=== PATIENT | male | born 1990 ===

== ENCOUNTER 2020-07-10 | Inpatient (IN) | payer BC, SELFPAY ==
[2020-07-10] VITALS (13 sets, daily range): BP systolic 93–119; BP diastolic 58–68; PULSE 74–101; RESP 14–20; TEMP 36.6–37.2; O2SAT 92–99; BMI 21.8
--- NOTE | 2020-07-10 | EEG_ITS ---
The waking background activity consists of a fairly well-defined low voltage posterior 10 hertz alpha frequency intermixed anteriorly with low-voltage fast frequencies. On a few occasion, slight sharp configuration waveform is seen from the left posterior temporal region. Drowsiness is characterized with diffuse theta slowing. During sleep, symmetrical frontal central sleep spindles develop over both hemispheres. Photic stimulation is without activation. Hyperventilation was omitted. IMPRESSION: This awake and sleep EEG is considered within normal limits. Some nonspecific sharp configuration waveforms are seen rarely from the left posterior temporal region. Clinical correlation is suggested. If a seizure disorder is strongly suspected, a 24-hour ambulatory EEG would be helpful. MD ALAN Holley/PATY / [id number]
--- NOTE | 2020-07-10 | XR_ITS ---
EXAMINATION: XR HUMERUS, LEFT CLINICAL INFORMATION: Left shoulder pain. COMPARISON: None TECHNIQUE: AP and lateral views of the left humerus. FINDINGS: There is no visible acute fracture or bony abnormality. The soft tissues are normal. XR/XR humerus LT IMPRESSION: Unremarkable left humerus.
--- NOTE | 2020-07-10 00:42 | ED.SYNCOPE ---
HPI - Syncope General Chief Complaint: Dizziness Stated Complaint: syncope Time Seen by Provider: 07/10/20 00:35 Source: patient and family Mode of arrival: ambulatory Limitations: no limitations History of Present Illness HPI narrative: patient with no significant past medical history came back from work was talking to his sister and family all of a sudden patient was feeling weak and next thing he fell down hitting his face/ head to the ground, patient was nauseated , confused and vomited 3 times after the episode. complaining of pain in the left jaw area. No seizure activity was noticed but patient was confused after the episode and feels tired now no history of tramadol use or alcohol use strong family history of seizures in the father side MD complaint: loss of consciousness Description of event: post-event confusion Related Data Home Medications Medication Instructions Recorded Confirmed No Known Home Meds 07/10/20 07/10/20 Allergies Allergy/AdvReac Type Severity Reaction Status Date / Time No Known Allergies Allergy Verified 07/10/20 00:30 Review of Systems Review of Systems: REVIEW OF SYSTEMS: Pertinent positives and negatives are stated above in the history. GEN: no fevers, chills, fatigue HEENT: no nasal congestion, sore throat, ear pain. left jaw pain++ NEURO: no headache, dizziness, focal weakness PULM: no cough, shortness of breath CV: no chest pain, palpitations, LE edema ABD: no abdominal pain, nausea, vomiting, diarrhea : no dysuria, urgency, frequency SKIN: no rash ROS otherwise negative x 10 PMFSH Past Medical History Medical History No known health problems Surgical History No history of previous surgery Social History Social History Smoking Status: Never smoker Use of substances other than those prescribed or required for medical reasons: No Advance Directives: No Advance Directives Information Provided: No Physical Exam Vital Signs: Vital Signs: Vital Signs Temp Pulse Resp BP Pulse Ox 07/10/20 00:26 98.9 F 84 15 93/59 L 94 07/10/20 00:09 98.4 F 84 15 92 Body Mass Index 21.8 Appearance: Alert. Oriented X3. No acute distress. sleepy Eyes: Pupils equal, round and reactive to light. ENT: Pharynx normal. ecchymosis under left eye with swelling of the left maxillary area, tender Neck: Normal inspection. Neck supple. CVS: Normal heart rate and rhythm. Pulses normal. Respiratory: No respiratory distress. Breath sounds normal. Abdomen: Soft and nontender. Skin: Skin warm and dry. Normal skin color. Normal skin turgor. Extremities: No lower extremity edema. Good range of movement Neuro: Oriented X 3. No motor deficit. No sensory deficit. Course Course Course Narrative: patient's symptoms likely complex seizure leading to fall and injury to the face will get a CT scan of the head neck and facial bones and do the basic labs. patient has a strong family history of seizures in the father side but patient never had seizures in the past. Patient signed out to Dr. Steele pending CT scan and labs MDM - Syncope Lab Data Result diagrams: 07/10/20 01:02 07/10/20 01:02 Discharge Plan Discharge Prescriptions: No Action No Known Home Meds RF: 0
--- NOTE | 2020-07-10 00:43 | CT_ITS ---
EXAMINATION: NONCONTRAST HEAD CT NONCONTRAST MAXILLOFACIAL CT NONCONTRAST CERVICAL SPINE CT INDICATION INFORMATION: Blunt trauma. Fall. COMPARISON: None TECHNIQUE: Separate noncontrast CT examinations of the head, maxillofacial bones, and cervical spine were performed. Coronal and sagittal images were created for each examination at the technologist workstation. This CT examination was performed using dose optimization techniques as appropriate, variously including the following: *Automated exposure control *Adjustment of mA and/or kV according to patient size (this includes techniques or standardized protocols for targeted exams where dose is matched to indication/reason for exam; i.e. extremities or head) *Use of iterative reconstruction technique DLP: 1419 mGy-cm FINDINGS: Head: There is no evidence of acute intracranial hemorrhage or territorial infarction. No abnormal mass effect or midline shift is seen. Castillo to white matter differentiation is well preserved. No extra-axial fluid collections are identified. No hydrocephalus. No significant volume loss. There is no abnormal attenuation within the brain parenchyma. No acute soft tissue abnormality. No calvarial fracture. The mastoid air cells are well aerated. Maxillofacial: Mild left premaxillary soft tissue swelling. Multiple maxillofacial fractures. Comminuted fracture of the anterior wall of the left maxillary sinus. Comminuted fracture of the posterolateral wall. Diastases at the left zygomaticosphenoid suture. Zygomatic arch is intact. Fracture of the orbital floor on the left. No evidence of extraocular muscle entrapment. There is near complete opacification of the left maxillary sinus. Internal high attenuation is consistent with blood products. The left infundibulum is opacified. The middle meati are clear. Rightward deviation of the nasal septum. The mandibular heads are well-seated in the condylar fossa. The orbits demonstrate a normal appearance bilaterally. The globes are intact, and there are no suspicious findings to suggest retrobulbar hemorrhage. Cervical spine: There is anatomic alignment of the vertebral bodies and posterior elements. The atlantoaxial and atlantooccipital articulations are intact. Vertebral body heights and intervertebral disc spaces are maintained. No evidence of acute fracture. No prevertebral soft tissue swelling. Visualized portions of the lung apices are clear. Minimal paraseptal emphysema at the lung apices. The thyroid gland is unremarkable. CT/CT cervical spine wo con IMPRESSION: 1. No acute intracranial finding. 2. Multiple maxillofacial fractures involving the left maxillary sinus. Left orbital floor fracture. 3. No acute fracture or malalignment of the cervical spine.
--- NOTE | 2020-07-10 00:51 | ECG_ITS ---
Test Reason : DIZZINESS Blood Pressure : / mmHG Vent. Rate : 081 BPM Atrial Rate : 081 BPM P-R Int : 168 ms QRS Dur : 082 ms QT Int : 352 ms P-R-T Axes : 062 073 055 degrees QTc Int : 408 ms Normal sinus rhythm Normal ECG No previous ECGs available Referred By: Crow Law Electronically Signed By:ROBIN LOZANO MD
[2020-07-10 01:07] LABS: Basophils Absolute Auto 0.1 X10*3/uL (0.0-0.2); Basophils Percent Auto 0.3 % (0-2); Eosinophils Percent Auto 0.1 % (0-4); Imm Gran Abs Auto 0.07 X10*3/uL (0.00-0.03); Imm Gran Pct Auto 0.4 % (0.0-0.4); Lymphocytes Absolute Auto 1.1 X10*3/uL (1.2-4.9); Lymphocytes Percent Auto 6.3 % (20-40); MANUAL DIFF FLAG NO; Mean Corpuscular HGB Conc 32.6 g/dl (31.0-36.0); Mean Corpuscular Hemoglobin 27.1 pg (27.0-33.0); Mean Corpuscular Volume 83.2 fL (80-98); Mean Platelet Volume 10.1 fL (9.4-12.4); Monocytes Absolute Auto 0.8 X10*3/uL (0.1-1.2); Monocytes Percent Auto 4.5 % (2-11); Neutrophils Absolute Auto 15.4 X10*3/uL (2.0-8.3); Neutrophils Percent Auto 88.4 % (45-73); Platelet Count 219 X10*3/uL (160-400); Red Blood Count 5.17 X10*6/uL (4.60-5.80); Red Cell Distribution Width 13.2 % (11.0-16.0); White Blood Count 17.4 X10*3/uL (4.8-10.8)
[2020-07-10] MEDS: 0.9 % Sodium Chloride 1,000 ML 999 ML IVCONT (01:34)
[2020-07-10 01:41] LABS: Anion Gap 14 (12-20); Blood Urea Nitrogen 13 mg/dL (9-16); Calcium 8.8 mg/dL (8.4-10.2); Carbon Dioxide 23 mmol/L (22-29); Chloride 106 mmol/L (96-108); Creatinine Clr Calc Pharmacy 110.3; Estimated Glomerular Filt Rate > 60; Glucose Random 112 mg/dL (60-115); Potassium 3.7 mmol/l (3.3-5.1); Sodium 139 mmol/L (135-145)
--- NOTE | 2020-07-10 03:38 | PC.NURSE ---
patient awaiting re-evaluation by MD and disposition at this point.
--- NOTE | 2020-07-10 04:41 | PM.IMHP ---
History of Present Illness Date of Service: 07/10/20 Chief Complaint: syncope this is a 30-year-old male with no significant past medical history who presents to the hospital after having a syncopal episode. Patient himself does not remember much of the episode and the last time remembers is walking to his home afterward and waking up in the hospital with pain in his face and feeling very thirsty. Patient reports no previous similar episode. He has no history of seizures. history of illness the episode. No reported seizure-like activity. No evidence of postictal confusion. patient reports significant headache at this time and face pain, but no chest pain, no shortness of breath, no palpitations abdominal pain nausea or vomiting, no diarrhea or constipation. No urinary symptoms and no lower extremity edema pain . No numbness or tingling. on arrival to the ED hemodynamically stable with no significant abnormal vitals labs are significant for WBC count of 17,[address] head negative for any intracranial abnormality, bleed maxillofacial CT shows multiple fractures in the face past medical history: Denies past surgical history: Denies family history: Denies of any incidence of any family member passing out and or dying of the setting. Social history: Lives with sister, denies any drug use or any alcohol. Smokes about 5 cigarettes a day. he reports that he eats and drinks well and has not been dehydrated Review of Systems Review of Systems: Yes all other systems are reviewed and are negative [facility] Medical History No known health problems Surgical History No history of previous surgery Social History Smoking Status: Never smoker Use of substances other than those prescribed or required for medical reasons: No Advance Directives: No Advance Directives Information Provided: No Meds Allergies Allergy/AdvReac Type Severity Reaction Status Date / Time No Known Allergies Allergy Verified 07/10/20 00:30 Home Medications Medication Instructions Recorded Confirmed Type No Known Home Meds 07/10/20 07/10/20 History Physical Exam Vital Signs and Narrative: Vital Signs: Last Vital Signs Temp 98.9 F 07/10/20 00:26 Pulse 101 H 07/10/20 04:00 Resp 15 07/10/20 04:00 BP 100/63 07/10/20 04:00 Pulse Ox 94 07/10/20 04:00 Body Mass Index 21.8 Const: General: cooperative and no acute distress Orientation/consciousness: patient oriented x3 HENMT: Other: he has got multiple bruises on the face mostly on the left of the face Eyes: General: appearance normal, both eyes and all related structures Pupils: Equal, round and reactive pupils present Resp: Effort & Inspection: normal respiratory effort and able to speak in complete sentences Auscultation: clear to auscultation bilaterally Cardio: Rate: regular rate Rhythm: regular rhythm GI: Palpation (GI): Soft to palpation Auscultation: normal bowel sounds Skin: General skin exam: no rashes or lesions noted Neuro: General: patient oriented x3 Cranial nerves: Yes Equal, round and reactive pupils present Cognition (Neuro): normal cognition Extrem: General: Yes normal to inspection and Yes no pedal edema Results Labs Labs: Laboratory Tests 07/10/20 07/10/20 01:02 01:02 WBC 17.4 H RBC 5.17 Hgb 14.0 Hct 43.0 MCV 83.2 MCH 27.1 MCHC 32.6 RDW 13.2 Plt Count 219 MPV 10.1 Immature Gran % (Auto) 0.4 Neut % (Auto) 88.4 H Lymph % (Auto) 6.3 L Chase % (Auto) 4.5 Eos % (Auto) 0.1 Baso % (Auto) 0.3 Lymph # (Auto) 1.1 L Chase # (Auto) 0.8 Eos # (Auto) 0.0 Baso # (Auto) 0.1 Abs Immat Gran (auto) 0.07 H Absolute Neuts (auto) 15.4 H Absolute Nucleated RBC 0.000 Nucleated RBC % (auto) 0.0 Sodium 139 Potassium 3.7 Chloride 106 Carbon Dioxide 23 Anion Gap 14 BUN 13 Creatinine 0.81 Estim Creat Clear Calc 110.3 Estimated GFR > 60 Random Glucose 112 Calcium 8.8 Imaging head, face, and cervical spine CT: Radiologist's impression: IMPRESSION: 1. No acute intracranial finding. 2. Multiple maxillofacial fractures involving the left maxillary sinus. Left orbital floor fracture. 3. No acute fracture or malalignment of the cervical spine. Assessment and Plan (1) Syncope: Status: Acute (2) Facial bone fracture: Status: Acute (3) Fracture of orbital floor: Status: Acute this is a young 30-year-old male with no past medical history who presents to the hospital with syncopal episode. # syncopal - unclear etiology, vasovagal,seizure versus cardiogenic - no prodromal symptoms, may possibly have been postictal as she does not remember the EMS ride or how he got to the hospital. Workup in the hospital with pain in his face and headache - no previous similar episode - EKG normal sinus with no QTC abnormality - CT head negative Plan: - Telemetry for 24 hours - IV fluid - EEG # maxillofacial fracture - pain control - no evidence of facial deformity - can follow-up patient # orbital floor fracture - pain control DVT prophylaxis: Lovenox
[2020-07-10 05:23] LABS: SARS COV2 PCR INHOUSE NEGATIVE (Negative)
[2020-07-10] MEDS: Lactated Ringers 1,000 ML 80 ML IVCONT ×2 (06:09→22:26)
[2020-07-10] MEDS: HYDROmorphone HCl 0.5 MG/0.5 ML SYRINGE IVPUSH ×2 (06:42→20:01)
[2020-07-10] MEDS: 0.9 % Sodium Chloride Flush 3 ML SYRINGE IVFLUSH ×3 (07:52→20:01)
[2020-07-10] MEDS: ondansetron HCL 4 MG/2 ML VIAL IVPUSH ×2 (08:35→15:32)
--- NOTE | 2020-07-10 09:02 | MHC.CM.PN ---
Patient is new to this area from [place] and has not yet established himself with a new PCP. Patient lives with his Sister and [id number] in their apartment. The goal for dc is to return home and CM has initiated and will follow for dc planning. 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
--- NOTE | 2020-07-10 13:00 | CA_ITS ---
Transthoracic Echocardiogram Patient (Last, First, Middle): eKith Lee, Gender: Male Date of : 1990 Age: 30 Procedure Date: 07/10/2020 Procedure Type: Transthoracic Echocardiogram Location: [facility] [place] Height: 165.1 cm Weight: 59.42 kg BSA: 1.65 m2 Heart Rate: bpm BP: 107 / 67 mmHg Process Steward: Geovanny MD: Maggie Lynn MD Symptoms: Syncope Study Quality: Good ECG Rhythm: Sinus Conclusions: - The left ventricular systolic function is normal. The visually estimated ejection fraction is between 55-60%. - No obvious valvular pathology seen on this study. Findings Left Ventricle Normal left ventricular cavity size. There is normal left ventricular wall thickness. The left ventricular systolic function is normal. The visually estimated ejection fraction is between 55-60%. There is no evidence of regional wall motion abnormalities. Diastolic function is normal for age. Right Ventricle Normal right ventricular cavity size and systolic function. Atria The left atrium is normal in size. The right atrium is normal in size. Aortic Valve There is a normal trileaflet aortic valve. There is no aortic valve stenosis. There is no aortic valve regurgitation. Mitral Valve The mitral valve appears normal. There is trace mitral valve regurgitation. There is no mitral valve stenosis. Pulmonic Valve The pulmonic valve was not well visualized. There is trace pulmonic valve regurgitation. Tricuspid Valve Normal tricuspid valve structure. There is trace tricuspid valve regurgitation. The pulmonary artery systolic pressure is normal. Great Vessels The aortic annulus, sinuses of valsalva, asc aorta, and aortic arch are normal in size. Venous The inferior vena cava is normal in size and collapses greater than 50% with inspiration. Pericardium/Pleural There is no evidence of pericardial effusion. Prior Study Comparison No prior study available for comparison. Recommendations, Care & Conclusions No obvious valvular pathology seen on this study. Measurements 2D Linear Measurements RVIDd: 2.17 IVSd: 0.60 0.6-0.9/0.6-1.0 cm LVIDd: 4.65 3.9-5.3/4.2-5.9 cm LVIDs: 3.22 2.0-3.6 cm LVPWd: 0.69 0.7-1.1 cm Ao Root: 3.10 2.1-3.5 cm LA Diam: 3.00 2.7-3.8/3.0-4.0 cm LV Mass: 113.18 67-162/88-224 g LVOT Diam: 2.20 3.0+(-)1.3 cm 2D Systolic Function EF 4C: 63.10 >55% EF 2C: 71.60 >55% EF BiP: 66.30 >55% Mitral Valve MV Pk E: 0.74 MV PK A: 0.40 MV Decel Time: 176.00 E/A: 1.80 E'Lateral: 14.10 E'Medial: 11.20 E/E' Med: 6.60 E/E' Lat: 5.30 Aortic Valve AoV Pk Nael: 1.06 AoV Mn Nael: 0.75 AoV VTI: 0.20 AoV Pk Grad: 4.00 Aov Mn Grad: 3.00 CAYLA Cont.VTI: 2.68 LVOT LVOT Pk Nael: 0.78 LVOT Mn Nael: 0.59 LVOT VTI: 0.14 LVOT Pk Grad: 2.00 LVOT Mn Grad: 1.00 LVOT Diam: 2.20 LVOT Area: 3.80 Diastolic Function MV Pk E: 0.74 MV Pk A: 0.40 E/A: 1.80 E'Medial: 11.20 E/E' Med: 6.60 E' Laterial: 14.10 E/E' Lat: 5.30 Tricuspid Valve TR Pk Nael: 1.70 TR Pk Grad: 12.00 RA Press: 3.00 RVSP: 15.00 Great Vessels Aorta Ao Root-2D: 3.10 2.0-3.7 cm Ao Asc: 2.80 2.1-3.4 cm Ao Arch: 2.10 Updated in Other Vendor System with Status of Final Jeison Urbina MD electronically signed on 07/10/2020 4:51:40 PM with status of Final
[2020-07-10] MEDS: Morphine Sulfate 4 MG/ML CARTRIDGE IVPUSH (15:31)
--- NOTE | 2020-07-10 15:54 | P.CNNE_ITS ---
History of Present Illness Data of Consult Service Date: 07/10/20 Requesting physician: Maggie Lynn Primary Care Provider: None Physician HPI Reason for consult: Syncopal episode with left facial fractures This is a previously healthy 30-year-old man who returned from work after his normal shift at [employer], drove home and took off his slime. He was standing in the kitchen when he suddenly fell forward without any warning. He landed on his face and was unresponsive. His sister and and [id number] turned him over while he was unconscious and snoring. His fists were clenched but there was no other motor activity. He was not incontinent. He came to after a minute and kept asking where he was and went to the bathroom and vomited. food service director were called and he was brought to the emergency room. He has no recall from the time he was standing in the kitchen till he woke up and came to in the emergency room. He has no recall of talking to his sister and [id number], and no recall of the ambulance ride. CAT scan of the brain on admission was negative but facial CAT scan showed multiple fractures of the left maxilla and the orbital floor. He now has difficulty chewing and eating and his face is asymmetrical. He denies any alcohol or illicit drug use. There is no previous history of syncope or seizures. Review of Systems Eyes: Eyes: Reports no additional eye complaints ENT: Reports system reviewed and no additional complaints, except as documented and Reports Normal hearing present Cardiovascular: Cardiovascular: Reports no additional cardiovascular complaints Respiratory: Respiratory: Reports no additional respiratory complaints Gastrointestinal: Gastrointestinal: Reports no additional gastrointestinal complaints Genitourinary: Genitourinary: Reports no additional male genitourinary complaints Musculoskeletal: Musculoskeletal: Reports no additional musculoskeletal complaints Integumentary/Breasts: Skin/Breast: Reports system reviewed and no additional complaints, except as docu Neurologic: Reports as per HPI and Reports Normal hearing present Psychiatric: Psychiatric: Reports as per HPI Endocrine: Endocrine: Reports no additional endocrine complaints Hematologic/Lymphatic: Hematologic/Lymphatic: Reports no additional hematologic/lymphatic complaints Allergic/Immunologic: Allergic/Immunologic: Reports no additional allergic/immunologic complaints PMF Past Medical History Medical History No known health problems Surgical History Surgical History No history of previous surgery Social History Social History Household Members: Family Housing: House Smoking Status: Never smoker Use of substances other than those prescribed or required for medical reasons: No Currently Displaying Signs/Symptoms of Drug Intoxication Withdrawal: No Have you been hit, kicked, punched, or otherwise hurt by someone within the past year? If so, by whom?: No Do you feel safe in your current relationship?: No Is there a partner from a previous relationship who is making you feel unsafe now?: No Are you made to feel afraid or neglected: No Advance Directives: No Advance Directives Information Provided: No Do you have thoughts of harming others: None Do you have a plan to hurt others: No Plan Recently lost weight without trying: No service: No Current occupational status: employed Meds Allergies Allergy/AdvReac Type Severity Reaction Status Date / Time No Known Allergies Allergy Verified 07/10/20 00:30 Home Medications Medication Instructions Recorded Confirmed Type No Known Home Meds 07/10/20 07/10/20 History Physical Exam Vital Signs: Vital Signs: Vital Signs Temp Pulse Resp BP Pulse Ox 07/10/20 15:11 97.8 F 77 20 107/67 99 07/10/20 11:50 97.8 F 85 18 109/61 98 07/10/20 09:51 85 109/61 07/10/20 07:55 97.9 F 101 H 18 119/66 98 07/10/20 06:42 14 07/10/20 06:17 99.0 F 99 19 99/66 99 07/10/20 04:00 101 H 15 100/63 94 07/10/20 03:40 83 15 104/68 94 07/10/20 00:26 98.9 F 84 15 93/59 L 94 07/10/20 00:09 98.4 F 84 15 92 Body Mass Index 21.8 Const: General: cooperative, comfortable, no acute distress, well developed, alert and awake Nutritional Appearance: well nourished Orientation/consciousness: oriented to person, oriented to place and oriented to time Limitations: no limitations HENMT: Other: He has ecchymosis under the left eye and his maxillary area is flattened on the left side and he has trouble opening his mouth wide. Head: Yes normocephalic, Yes contusion and Yes raccoon eyes (Early raccoon eye on the left side) Ears: hearing grossly normal bilaterally General nose exam: Normal external nose present Face and sinus: Yes normal facial exam Mouth: Normal oral and palatal mucosa present Eyes: General: appearance normal, both eyes and all related structures Visual Mccoy: normal visual mccoy by confrontation Alignment and Position: alignment normal Periorbital: periorbital findings normal Eyelids: Yes eyelids normal Conjunctivae: conjunctivae normal Sclerae: sclerae normal Corneas: corneas normal Pupils: Equal, round and reactive pupils present and Pupil accommodation reflex normal EOM: EOMs intact bilaterally Direct Ophthalmoscopy: normal light reflex Neck: Neck: Yes normal visual inspection, Yes full ROM and Yes no meningeal signs Thyroid: Thyroid normal Carotids: normal carotid upstroke and bounding pulses Chest: Chest palpation & inspection: normal inspection of the chest Resp: Effort & Inspection: normal respiratory effort Auscultation: clear to auscultation bilaterally Cardio: Rate: regular rate Rhythm: regular rhythm Heart sounds: S1 normal heart sound present and S2 normal heart sound present Peripheral pulses: Peripheral pulses 2+ throughout GI: Inspection: Yes normal to inspection Percussion: Yes normal to percussion Auscultation: normal bowel sounds Rectal Exam - Male: Yes deferred Back/Spine/Pelvis: Cervical Spine: normal cervical lordosis and cervical ROM normal Thoracic/Lumbar Spine: thoracic and lumbar spine normal to inspection Skin: General skin exam: no rashes or lesions noted Neuro: General: oriented to person, oriented to place, oriented to time, gait normal, tone normal, moves all extremities, Normal light touch and pain sensation, no meningeal signs, no focal motor deficits, CN's II-XI intact bilaterally, normal sensation to monofilament and deep tendon reflexes 2+ bilaterally Cranial nerves: Yes CN's II-XII intact bilaterally, Yes Equal, round and reactive pupils present, Yes Bilaterally intact EOM present, Yes Nys tagmus not present, Yes Normal facial strength present, Yes Midline tongue present, Yes Normal gag reflex present, Yes Symmetric palate elevation present, Yes Normal hearing present and Yes Ability to bilaterally rotate head present Cognition (Neuro): normal cognition Speech: Other speech findings present (Neuro) Gait exam (Neuro): Normal gait present Motor exam (neuro): 5/5 motor strength present throughout, Pronator motor function not present, no tremor noted, no asterixis, Motor fasciculations not present, Normal motor muscle tone present throughout and Motor abnormalities not present Sensory Exam: Bilaterally intact graphesthesia Deep tendon reflexes (DTR's): Right triceps reflex intensity grade: 2+, Left triceps reflex intensity grade: 2+, Rt Biceps (C5, C6): 2+, Left biceps reflex intensity grade: 2+, Right brachioradialis reflex intensity grade: 2+, Left brachioradialis reflex intensity grade: 2+, Right patellar reflex intensity grade: 2+, Left patellar reflex intensity grade: 2+, Right ankle reflex intensity grade: 2+ and Left ankle reflex intensity grade: 2+ Plantar Reflex Responses: downgoing: right, left and bilateral Coordination: [id number] test normal, [id number] test normal, tandem gait normal and Romberg test negative Pupils: Normal pupillary reactivity/response: bilateral Extrem: General: Yes normal to inspection, Yes normal exam except as noted and Yes no pedal edema Psych: Appearance: grossly normal Mental Status: mental status grossly normal Speech and movement: Normal speech and movement present and Clear speech present Affect: normal affect Attitude: cooperative Thought process: Normal thought process present Results Labs CBC & Chem 7: 07/10/20 01:02 07/10/20 01:02 Labs: Short CBC 07/10/20 Range/Units 01:02 WBC 17.4 H (4.8-10.8) X10*3/uL Hgb 14.0 (14.0-18.0) g/dl Hct 43.0 (42-52) % Plt Count 219 (160-400) X10*3/uL BMP 07/10/20 01:02 Sodium 139 Potassium 3.7 Chloride 106 Carbon Dioxide 23 BUN 13 Creatinine 0.81 Calcium 8.8 Assessment and Plan (1) Seizure: Problem details: Probable new onset of seizure Status: Acute EEG, MRI of the brain (2) Syncope: Status: Acute Cardiac monitoring for arrhythmia (3) Facial bone fracture: Status: Acute Evaluation by her head and neck surgeon (4) Fracture of orbital floor: Status: Acute
--- NOTE | 2020-07-10 16:38 | HO.PM.IMPN ---
Subjective Subjective Date of Service: 07/10/20 Interval History: syncope Review of Systems Denies any chest pain or shortness of breath or abdominal pain or fever or chills. Physical Exam Vital Signs: Vital Signs: Vital Signs Temp Pulse Resp BP Pulse Ox 07/10/20 15:11 97.8 F 77 20 107/67 99 07/10/20 11:50 97.8 F 85 18 109/61 98 07/10/20 09:51 85 109/61 07/10/20 07:55 97.9 F 101 H 18 119/66 98 07/10/20 06:42 14 07/10/20 06:17 99.0 F 99 19 99/66 99 07/10/20 04:00 101 H 15 100/63 94 07/10/20 03:40 83 15 104/68 94 07/10/20 00:26 98.9 F 84 15 93/59 L 94 07/10/20 00:09 98.4 F 84 15 92 Body Mass Index 21.8 Physical exam: Cvs: rrr, [id number] , no murmur res: clear to auscultation ,no rhonchii or wheezing abd: no rebound or guarding ,nt, bs present. ext pulses present , no cyanosis neuro: axo3 , nonfocal. Objective Data Current Medications Generic Name Dose Route Start Last Admin Trade Name Freq PRN Reason Stop Dose Admin Acetaminophen 650 mg 07/10/20 05:37 Acetaminophen 325 Mg Tablet PO Q6H PRN Pain, Mild (Pain Scale 1-3) Enoxaparin Sodium 40 mg 07/10/20 05:37 07/10/20 06:10 Enoxaparin Sodium 40 Mg/0.4 Ml Syringe SUBCUT Not Given Q24H PRESTON Hydromorphone HCl 0.5 mg 07/10/20 05:37 07/10/20 06:42 Hydromorphone Hcl 0.5 Mg/0.5 Ml Syringe IVPUSH 0.5 mg Q4H PRN Administration Pain, Severe (Pain Scale 7-10) Lactated Ringer's 1,000 mls @ 80 mls/hr 07/10/20 05:37 07/10/20 06:09 Lr IVCONT 80 mls/hr .[id number] PRESTON Administration Morphine Sulfate 4 mg 07/10/20 05:37 07/10/20 15:31 Morphine Sulfate 4 Mg/Ml Cartridge IVPUSH 4 mg Q4H PRN Administration Pain, Severe (Pain Scale 7-10) Ondansetron HCl 4 mg 07/10/20 05:37 07/10/20 15:32 Ondansetron Hcl 4 Mg/2 Ml Vial IVPUSH 4 mg Q8H PRN Administration Nausea and Vomiting Sodium Chloride 3 ml 07/10/20 08:00 07/10/20 15:33 0.9 % Sodium Chloride Flush 3 Ml Syringe IVFLUSH 3 ml QSHIFT PRESTON Administration Labs CBC & Chem 7: 07/10/20 01:02 07/10/20 01:02 Assessment and Plan (1) Syncope: Status: Acute Assessment and Plan: 1. syncopal- unclear etiology no prodromal symptoms, may possibly have been postictal as she does not remember the EMS ride or how he got to the hospital. Workup in the hospital with pain in his face and headache no previous similar episode EKG normal sinus with no QTC abnormality CT head negative Continue IV fluid, will check echo, U tox, carotid duplex, neurology evaluation. 2. maxillofacial fracture pain control no evidence of facial deformity can follow-up patient 3. orbital floor fracture pain control
[2020-07-11] VITALS (7 sets, daily range): BP systolic 91–108; BP diastolic 56–60; PULSE 73–83; RESP 16–18; TEMP 36.3–37.3; O2SAT 96–98
--- NOTE | 2020-07-11 | MR_ITS ---
EXAMINATION: MR BRAIN WITHOUT CONTRAST CLINICAL INFORMATION: Seizure. Syncope. COMPARISON: CT head from 07/10/2020. TECHNIQUE: MRI of the brain was obtained using routine sequences without contrast. FINDINGS: No focal restricted diffusion is demonstrated to suggest acute or subacute cerebral ischemia. No evidence of acute or chronic hemorrhagic products on heme-sensitive imaging. The hippocampi are symmetric in size and contour. The temporal horns of the lateral ventricles appear symmetric. There appears to be asymmetric, mildly increased T2 FLAIR hyperintensity within the left mesial temporal lobe. Otherwise, normal parenchymal signal characteristics. The ventricles are normal in morphology and size. No abnormal mass effect. No midline shift. No extra-axial collection. Normal appearance of the pituitary gland. No abnormalities of the posterior fossa with normal appearance of the brainstem and cerebellum. The cerebellar tonsils are normally positioned. Normal arterial and venous vascular flow voids are present. Soft tissue edema surrounding the previously demonstrated left maxillary sinus and orbital floor. Associated blood products within the left maxillary sinus. Normal, homogeneous marrow signal. No signal abnormalities within the paranasal sinuses or mastoids. Minimal subperiosteal edema along the lateral aspect of the left orbit. MR/MR head/brain wo con IMPRESSION: 1. Asymmetric, mildly increased T2 FLAIR hyperintensity within the left mesial temporal lobe. No evidence of associated restricted diffusion or hemorrhage. This may be seen with a variety of encephalopathic/encephalitis etiologies but may also be directly related to a postictal state. Follow-up MRI may help evaluate for evolution/resolution. 2. No additional acute intracranial abnormalities. 3. Left maxillary fracture with hematosinus. Minimal subperiosteal edema along the lateral aspect of the left orbit.
[2020-07-11] MEDS: HYDROmorphone HCl 0.5 MG/0.5 ML SYRINGE IVPUSH (00:21)
[2020-07-11] MEDS: Enoxaparin Sodium 40 MG/0.4 ML SYRINGE SUBCUT (06:11)
[2020-07-11] MEDS: Acetaminophen 325 MG TABLET 650 MG PO ×2 (06:13→23:37)
[2020-07-11 06:21] LABS: MANUAL DIFF FLAG NO
[2020-07-11 06:38] LABS: Basophils Percent Auto 0.5 % (0-2); Eosinophils Absolute Auto 0.2 X10*3/uL (0.0-0.4); Eosinophils Percent Auto 2.4 % (0-4); Hematocrit 40.6 % (42-52); Imm Gran Abs Auto 0.03 X10*3/uL (0.00-0.03); Imm Gran Pct Auto 0.3 % (0.0-0.4); Lymphocytes Absolute Auto 2.5 X10*3/uL (1.2-4.9); Lymphocytes Percent Auto 29.5 % (20-40); Mean Corpuscular Volume 84.2 fL (80-98); Mean Platelet Volume 10.6 fL (9.4-12.4); Monocytes Absolute Auto 0.9 X10*3/uL (0.1-1.2); Monocytes Percent Auto 10.6 % (2-11); Neutrophils Absolute Auto 4.9 X10*3/uL (2.0-8.3); Neutrophils Percent Auto 56.7 % (45-73); Platelet Count 208 X10*3/uL (160-400); Red Blood Count 4.82 X10*6/uL (4.60-5.80); Red Cell Distribution Width 13.4 % (11.0-16.0); White Blood Count 8.6 X10*3/uL (4.8-10.8)
[2020-07-11 07:32] LABS: Anion Gap 11 (12-20); Blood Urea Nitrogen 8 mg/dL (9-16); Calcium 8.1 mg/dL (8.4-10.2); Carbon Dioxide 26 mmol/L (22-29); Chloride 104 mmol/L (96-108); Creatinine Clr Calc Pharmacy 110.3; Estimated Glomerular Filt Rate > 60; Glucose Random 95 mg/dL (60-115); Sodium 137 mmol/L (135-145)
--- NOTE | 2020-07-11 08:48 | MHC.CM.PN ---
at this time dc plan is to return home no svcs. cm to cont. to follow.
[2020-07-11] MEDS: Lactated Ringers 1,000 ML 80 ML IVCONT (10:41)
--- NOTE | 2020-07-11 15:29 | MHC.CM.PN ---
dc plan has remained the same, for patient to return home no svcs. per md's request a task was sent to cm office to help pt find a pcp in the area. pt is staying c his sister in [place], originally from [place]. cm to cont. to follow.
--- NOTE | 2020-07-11 16:50 | HO.PM.IMPN ---
Subjective Subjective Date of Service: 07/11/20 Interval History: syncope , question of seizure Review of Systems Patient denies any chest pain or shortness of breath or abdominal pain. Still has discomfort when showing because of maxillofacial fractures. Physical Exam Vital Signs: Vital Signs: Vital Signs Temp Pulse Resp BP Pulse Ox 07/11/20 15:40 97.9 F 75 18 97/56 L 98 07/11/20 11:20 97.4 F 74 18 96/59 L 98 07/11/20 07:33 98.4 F 73 18 91/56 L 97 07/11/20 03:02 98.2 F 73 16 105/56 L 96 07/11/20 00:21 18 07/10/20 23:07 98.6 F 74 16 101/58 L 97 07/10/20 20:01 18 07/10/20 19:37 98.5 F 89 18 108/58 L 97 Body Mass Index 21.8 Physical exam: Cvs: rrr, [id number] , no murmur res: clear to auscultation ,no rhonchii or wheezing abd: no rebound or guarding ,nt, bs present. ext pulses present , no cyanosis neuro: axo3 , nonfocal. Objective Data Current Medications Generic Name Dose Route Start Last Admin Trade Name Freq PRN Reason Stop Dose Admin Acetaminophen 650 mg 07/10/20 05:37 07/11/20 06:13 Acetaminophen 325 Mg Tablet PO 650 mg Q6H PRN Administration Pain, Mild (Pain Scale 1-3) Enoxaparin Sodium 40 mg 07/10/20 05:37 07/11/20 06:11 Enoxaparin Sodium 40 Mg/0.4 Ml Syringe SUBCUT 40 mg Q24H PRESTON Administration Hydromorphone HCl 0.5 mg 07/10/20 05:37 07/11/20 00:21 Hydromorphone Hcl 0.5 Mg/0.5 Ml Syringe IVPUSH 0.5 mg Q4H PRN Administration Pain, Severe (Pain Scale 7-10) Lactated Ringer's 1,000 mls @ 80 mls/hr 07/10/20 05:37 07/11/20 10:41 Lr IVCONT 80 mls/hr .[id number] PRESTON Administration Morphine Sulfate 4 mg 07/10/20 05:37 07/10/20 15:31 Morphine Sulfate 4 Mg/Ml Cartridge IVPUSH 4 mg Q4H PRN Administration Pain, Severe (Pain Scale 7-10) Ondansetron HCl 4 mg 07/10/20 05:37 07/10/20 15:32 Ondansetron Hcl 4 Mg/2 Ml Vial IVPUSH 4 mg Q8H PRN Administration Nausea and Vomiting Sodium Chloride 3 ml 07/10/20 08:00 07/11/20 16:26 0.9 % Sodium Chloride Flush 3 Ml Syringe IVFLUSH Not Given QSHIFT PRESTON Labs CBC & Chem 7: 07/11/20 05:45 07/11/20 05:45 Assessment and Plan (1) Syncope: Status: Acute Assessment and Plan: 1. syncopal- unclear etiology no prodromal symptoms, may possibly have been postictal as she does not remember the EMS ride or how he got to the hospital. Workup in the hospital with pain in his face and headache no previous similar episode EKG normal sinus with no QTC abnormality CT head negative Also patient had a cardiac echo which is grossly fine, MRI of brain done:Asymmetric, mildly increased T2 FLAIR hyperintensity within the left mesial temporal lobe. EEG also done-Some nonspecific sharp configuration waveforms are seen rarely from the left posterior temporal region. Discussed with Neuro about above: Suspected seizure related issue: Patient was started on Keppra. 2. maxillofacial fracture pain control no evidence of facial deformity can follow-up patient: Patient is to follow-up out patiently with head and neck surgeon . 3. orbital floor fracture pain control
[2020-07-11] MEDS: levETIRAcetam 500 MG TABLET PO (20:49)
--- NOTE | 2020-07-11 23:40 | PC.NURSE ---
Patient refusing bed alarm as pt is a high fall risk. This RN educated patient about why is a high fall risk, pt still refusing.
[2020-07-12 04:00] VITALS: PULSE 72; RESP 18; TEMP 36.2; O2SAT 97
[2020-07-12 05:01] VITALS: BP 94/76
[2020-07-12] MEDS: Enoxaparin Sodium 40 MG/0.4 ML SYRINGE SUBCUT (05:36)
[2020-07-12 07:44] VITALS: BP 90/50; PULSE 64; RESP 18; TEMP 36.4; O2SAT 97
[2020-07-12] MEDS: levETIRAcetam 500 MG TABLET PO (09:21)
[2020-07-12] MEDS: Amoxicillin/Potassium Clav 875 MG TABLET PO (09:21)
[2020-07-12] MEDS: 0.9 % Sodium Chloride Flush 3 ML SYRINGE IVFLUSH (09:24)
[2020-07-12 11:27] VITALS: BP 96/78; PULSE 73; RESP 18; TEMP 36.6; O2SAT 98
--- NOTE | 2020-07-12 11:35 | MHC.CM.PN ---
Per ROUNDS discussion, Patient will be medically cleared for dc to home today, no services. CM & met with Patient and discussed the need for Patient to establish himself with a PCP [facility]. CM suggested that Patient call his insurance and request a list of PCPs who are in network in the area that Patient is living ([place]) and once obtained, call to determine who is accepting new Patients.Patient expressed full understanding of this conversation and agreed to get a PCP [facility]. Patient will need f/u with a Head & Neck Surgeon, which MD said he would document in the dc paperwork.Patient is aware of and in agreement with the dc plan.
[2020-07-12 15:04] VITALS: BP 92/51; PULSE 69; RESP 18; TEMP 36.8; O2SAT 96
--- NOTE | 2020-07-12 15:04 | MHC.CM.PN ---
Per MD's request, COLEMAN met with Patient to determine if he has made any progress towards obtaining a PCP. Patient indicated that he will call his insurance from home to get the names of PCPs in [facility], who are in network with his insurance. COLEMAN relayed this information to .
--- NOTE | 2020-07-12 15:11 | PM.DS ---
DS: Providers Provider Date of admission: 07/10/20 04:40 Primary care physician: None Physician Consults: 07/10/20 09:20 Consult to Neurology Routine Consulting Provider: [facility] Reason for consultation: syncope Has provider been notified: No DS: Diagnosis Discharge Diagnosis (1) Syncope: Status: Acute (2) Seizure: Status: Acute Problem details: Probable new onset of seizure (3) Facial bone fracture: Status: Acute (4) Fracture of orbital floor: Status: Acute DS: Summary Hospital Course Hospital Course: 1. syncopal- unclear etiology no prodromal symptoms, may possibly have been postictal as she does not remember the EMS ride or how he got to the hospital. Workup in the hospital with pain in his face and headache no previous similar episode EKG normal sinus with no QTC abnormality CT head negative Also patient had a cardiac echo which is grossly fine, MRI of brain done:Asymmetric, mildly increased T2 FLAIR hyperintensity within the left mesial temporal lobe. EEG also done-Some nonspecific sharp configuration waveforms are seen rarely from the left posterior temporal region. Discussed with Neuro about above: Suspected seizure related issue: Patient was started on Keppra. 2. maxillofacial fracture pain control no evidence of facial deformity need oupatient follow-up patient: Patient is to follow-up out patiently with head and neck surgeon . Patient was given head and neck surgeon [facility] phone number to contact for making appointment. Also patient was made aware that he needs outpatient follow-up with neuro Dr. Grady office. Also patient is to follow-up with PCP and also make appointment for PCP, advised to avoid driving until seen by Neurology out patiently. 3. orbital floor fracture pain control, please also see above. Above management discussed with the patient in detail length he understand and in agreement with the above plan, time spent 50 minutes and 50% time spent on counseling. Significant findings: As above. Procedures performed: None. Treatment and response: As above. Complications: None. Time Spent with Patient Time attestation: Total time spent providing and/or coordinating discharge services: Physical Exam Vital Signs: Vital Signs: Vital Signs Temp Pulse Resp BP Pulse Ox 07/12/20 15:04 98.2 F 69 18 92/51 L 96 07/12/20 11:27 97.8 F 73 18 96/78 98 07/12/20 07:44 97.5 F 64 18 90/50 L 97 10/29/20 05:01 94/76 07/12/20 04:00 97.1 F 72 18 97 07/11/20 23:59 99.1 F 83 18 108/60 98 07/11/20 19:39 97.8 F 76 18 101/60 96 07/11/20 15:40 97.9 F 75 18 97/56 L 98 Body Mass Index 21.8 Physical exam: Heent : still has mild facial pain , no discharge or swellin Cvs: rrr, [id number] , no murmur res: clear to auscultation ,no rhonchii or wheezing abd: no rebound or guarding ,nt, bs present. ext pulses present , no cyanosis neuro: axo3 , nonfocal. Discharge Plan Discharge Patient Disposition: Home, Self-Care Referrals: Physician,None [Primary Care Provider] - 1 Week (Please call your insurance and list a Primary Care Provider. Your insurance company can provide you with a list of who you can choose from in your area. Our offices in [place] if you choose one of our providers you can call [phone] to call and schedule a appointment once you list a provider.) Discharge Medications: New acetaminophen 325 mg Tablet 650 mg PO Q6H PRN (Reason: Pain, Mild (Pain Scale 1-3)) Qty: 30 RF: 0 levetiracetam 500 mg Tablet 500 mg PO BID Qty: 60 RF: 0 amoxicillin-pot clavulanate 875-125 mg Tablet 875 mg PO Q12H Qty: 14 RF: 0 hydromorphone [Dilaudid] 2 mg tablet 2 mg PO Q6H Qty: 14 RF: 0 docusate sodium [Colace] 100 mg capsule 100 mg PO DAILY Qty: 30 RF: 0 docusate sodium [Colace] 100 mg capsule 100 mg PO DAILY Qty: 30 RF: 0 polyethylene glycol 3350 [Miralax] 17 gram/dose powder 17 g PO DAILY Qty: 119 RF: 0 Diet: advance to your usual diet Activity on Discharge: As tolerated Patient Instructions: Levetiracetam (By mouth) Visit Report Forms: Patient Portal Discharge page Care Plan Goals: Patient came with the syncope-patient was seen by Neurology -CT scan of head and MRI of head was done: Patient was found to have multiple maxillofacial area fractures, Subsequently also was thought to have probable seizure disorder and start on Keppra, neurology recommended to follow up outpatient with head and neck surgeon in [facility] Patient is to call and make an appointment, in addition patient is to follow-up with Neurology out patiently, was also advised to avoid driving until sees seen by PCP he needs to make appointment for PCP also he wants to do it on his own. Health Concerns: As above. Plan of Treatment: As above.
== END 2020-07-12 17:05 | disposition home or self-care (01) | DRG 115 ==
LOC: HO.ED 04:37 → HO.IMC 04:53
PROVIDERS: Emergency Medicine Emergency Medical Services; Admitting Provider Internal Medicine; Emergency Provider Internal Medicine; Visit Provider Internal Medicine
DX: S02.92XA Unspecified fracture of facial bones, initial encounter for closed fracture (principal); R56.9 Unspecified convulsions; S02.32XA Fracture of orbital floor, left side, initial encounter for closed fracture; Z20.828 Contact with and (suspected) exposure to other viral communicable diseases; F17.210 Nicotine dependence, cigarettes, uncomplicated; Z71.6 Tobacco abuse counseling; W18.30XA Fall on same level, unspecified, initial encounter; Y93.9 Activity, unspecified; Y92.9 Unspecified place or not applicable; Y99.9 Unspecified external cause status
CPT/HCPCS: 36415; 70450; 70486; 70551; 72125; 73060; 80048; 85025; 87635; 93005; 93306; 95816; 96360; 99219; 99223; 99284; 99285; J1170; J1650; J2270; J2405

== ENCOUNTER 2020-08-03 11:12 | Outpatient (REF) | payer OTHER, SELFPAY ==
[2020-08-03 13:27] LABS: Mean Corpuscular HGB Conc 31.8 g/dl (31.0-36.0); Mean Corpuscular Volume 84.8 fL (80-98); Mean Platelet Volume 11.3 fL (9.4-12.4); Platelet Count 191 X10*3/uL (160-400); Red Blood Count 5.19 X10*6/uL (4.60-5.80); Red Cell Distribution Width 13.5 % (11.0-16.0)
[2020-08-03 14:16] LABS: Alanine Aminotransferase 17 U/L (0-40); Albumin Level 4.5 g/dL (3.5-5.0); Alkaline Phosphatase 55 U/L (39-117); Anion Gap 10 (12-20); Aspartate Amino Transferase 15 U/L (5-37); Bilirubin Direct 0.2 mg/dL (0.0-0.5); Bilirubin Total 0.6 mg/dL (0.0-1.0); Blood Urea Nitrogen 9 mg/dL (9-16); Carbon Dioxide 31 mmol/L (22-29); Chloride 105 mmol/L (96-108); Cholesterol 112 mg/dL; Estimated Glomerular Filt Rate > 60; Glucose Fasting 87 mg/dL (60-99); HDL Cholesterol 33 mg/dL; LDL Cholesterol Calculated 69 mg/dl; Potassium 4.5 mmol/l (3.3-5.1); Sodium 141 mmol/L (135-145); Triglycerides 53 mg/dL
[2020-08-03 14:37] LABS: TSH reflex Free T4 0.79 mIU/mL (0.32-4.0)
== END 2020-08-03 11:13 | disposition home or self-care (01) ==
LOC: HO.WFDLDS 11:12
PROVIDERS: Visit Provider Hospitalist
DX: Z00.00 Encounter for general adult medical examination without abnormal findings (principal); Z13.220 Encounter for screening for lipoid disorders; Z13.29 Encounter for screening for other suspected endocrine disorder
CPT/HCPCS: 36415; 80048; 80061; 80076; 84443; 85027

== ENCOUNTER 2021-10-29 12:25 | Outpatient (REF) | payer OTHER, SELFPAY ==
[2021-10-29 13:48] LABS: Hematocrit 48.1 % (42.0-52.0); Hemoglobin 15.4 g/dl (14.0-18.0); Mean Corpuscular Hemoglobin 26.9 pg (27.0-33.0); Mean Corpuscular Volume 84.1 fL (80.0-98.0); Mean Platelet Volume 10.8 fL (9.4-12.4); Platelet Count 220 X10*3/uL (160-400); Red Blood Count 5.72 X10*6/uL (4.60-5.80); Red Cell Distribution Width 14.1 % (11.0-16.0); White Blood Count 6.5 X10*3/uL (4.8-10.8)
[2021-10-29 13:58] LABS: Alanine Aminotransferase 27 U/L (0-40); Albumin Level 4.6 g/dL (3.5-5.0); Alkaline Phosphatase 68 U/L (39-117); Anion Gap 11 (12-20); Aspartate Amino Transferase 20 U/L (5-37); Blood Urea Nitrogen 11 mg/dL (9-16); Calcium 9.7 mg/dL (8.4-10.2); Carbon Dioxide 29 mmol/L (22-29); Chloride 104 mmol/L (96-108); Cholesterol 115 mg/dL; Estimated Glomerular Filt Rate > 60; Glucose Fasting 97 mg/dL (60-99); HDL Cholesterol 35 mg/dL; LDL Cholesterol Calculated 66 mg/dl; Potassium 4.1 mmol/L (3.3-5.1); Sodium 140 mmol/L (135-145); Total Protein 7.6 g/dL (6.5-8.0); Triglycerides 74 mg/dL
[2021-10-29 14:21] LABS: TSH reflex Free T4 0.52 uIU/mL (0.32-4.0)
== END 2021-10-29 12:26 | disposition home or self-care (01) ==
LOC: HO.WFDLDS 12:25
PROVIDERS: Visit Provider Hospitalist
DX: Z00.00 Encounter for general adult medical examination without abnormal findings (principal)
CPT/HCPCS: 36415; 80053; 80061; 84443; 85027

== ENCOUNTER 2023-02-24 06:38 | Emergency (ER) | payer OTHER, SELFPAY ==
--- NOTE | ~2023-02-24 | CT_ITS ---
EXAMINATION: CT ABDOMEN AND PELVIS WITHOUT CONTRAST CLINICAL INFORMATION: Bilateral flank pain and hematuria COMPARISON: None available. TECHNIQUE: Multidetector volumetric imaging was performed from the superior aspect of the liver through the pubic symphysis. Sagittal and coronal reformatted images were obtained on the technologist's workstation. This CT examination was performed using dose optimization techniques as appropriate, variously including the following: *Automated exposure control *Adjustment of mA and/or kV according to patient size (this includes techniques or standardized protocols for targeted exams where dose is matched to indication/reason for exam; i.e. extremities or head) *Use of iterative reconstruction technique DLP: 291 mGy-cm FINDINGS: LUNG BASES: The visualized lung bases are unremarkable. LIVER, GALLBLADDER, AND BILIARY TREE: The liver is normal in size, shape, and attenuation. No focal hepatic lesion or biliary ductal dilatation is present. The gallbladder is unremarkable with no evidence of radiopaque gallstones, gallbladder wall thickening, or obvious pericholecystic inflammatory changes. PANCREAS: Unremarkable. SPLEEN: Unremarkable. ADRENAL GLANDS: Unremarkable. KIDNEYS AND URETERS: The kidneys are normal in size, shape, and attenuation. No hydronephrosis, hydroureter, or calculi seen. No perinephric stranding. BLADDER: Unremarkable. GASTROINTESTINAL TRACT: There is large amount of stool and gas seen in colon without significant distention. The small bowel loops are normal caliber. Appendix is not visualized. ABDOMINAL WALL: No significant hernia is appreciated. LYMPH NODES: Normal. VASCULAR: Unremarkable. PELVIC VISCERA: Unremarkable. OSSEOUS STRUCTURES: No aggressive lytic or sclerotic process seen. CT/CT abdomen pelvis wo IV con IMPRESSION: 1. No acute intra-abdominal process seen. 2. Mild constipation. Fleischner guidelines were followed.
--- NOTE | 2023-02-24 06:42 | ED_ITS ---
HPI - General Adult General Chief complaint: Back Pain/Injury Stated complaint: back pain Time Seen by Provider: 02/24/23 06:41 Source: patient and EMS Mode of arrival: EMS Limitations: no limitations History of Present Illness HPI narrative: Patient is a 32 year old assigned male at with no reported medical history presenting to the emergency department today with bilateral flank pain. Patient states that over the last 2 days he has had bilateral flank pain. Patient states that he has had some difficulty urinating at times as well over the last 2 days. Patient denies any dizziness, lightheadedness, nausea, vomiting, fever, chills, blurry vision, double vision, loss of vision, chest pain, difficulty breathing, shortness of breath, back pain, night sweats, pain with urination, increased urinary frequency, increased urinary urgency, blood in his urine or stool, syncope or a near syncopal episode, recent trauma or falls, bowel incontinence, bladder incontinence, bowel retention, bladder retention, or any other complaints at this time. Onset (ago): day(s) (2) Severity: mild Severity scale (1-10): 3 Quality: aching and dull Pain Consistency: constant Relieving factors: none Exacerbating factors: none Associated symptoms: denies other symptoms Treatments prior to arrival: none Related Data Previous Rx's Medication Instructions Recorded cefuroxime axetil 250 mg tablet 250 mg PO BID 7 days #14 tabs 02/24/23 magnesium citrate 150 ml PO DAILY #296 mL 02/24/23 Allergies Allergy/AdvReac Type Severity Reaction Status Date / Time No Known Allergies Allergy Verified 02/24/23 06:45 Review of Systems Constitutional: Constitutional: Reports no additional constitutional complaints, Denies chills, Denies fever(s) and Denies night sweats Eyes: Eyes: Reports no additional eye complaints, Denies blurry vision, Denies change in vision, Denies diplopia, Denies eye discharge, Denies loss of vision and Denies eye pain ENT: Denies dizziness Cardiovascular: Cardiovascular: Reports no additional cardiovascular complaints, Denies chest pain, Denies lightheadedness, Denies Loss of Consciousness and Denies dyspnea Respiratory: Respiratory: Reports no additional respiratory complaints and Denies dyspnea Gastrointestinal: Gastrointestinal: Reports no additional gastrointestinal complaints, Denies abdominal pain, Denies melena, Denies hematochezia, Denies change in bowel habits and Denies change in stool character Genitourinary: Genitourinary: Reports no additional male genitourinary complaints, Denies hematuria, Denies oliguria, Denies difficulty urinating, Denies dysuria, Reports flank pain (bilateral), Denies urinary frequency, Denies urinary hesitancy, Denies urinary incontinence and Denies urinary urgency Musculoskeletal: Musculoskeletal: Reports no additional musculoskeletal complaints, Denies numbness and Denies tingling Neurologic: Denies dizziness, Denies loss of vision, Denies numbness and Denies tingling Psychiatric: Psychiatric: Reports no additional psychiatric complaints Endocrine: Endocrine: Reports no additional endocrine complaints Hematologic/Lymphatic: Hematologic/Lymphatic: Reports no additional hematolog ic/lymphatic complaints Allergic/Immunologic: Allergic/Immunologic: Reports no additional allergic/immunologic complaints PMFSH Past Medical History Attestation statement: The following information was validated with the patient. Source: old records reviewed and nursing notes reviewed Medical History No known health problems Surgical History No history of previous surgery Social History Social History Household Members: Family Housing: House Alcohol intake: current Alcohol intake frequency: holidays/special occasions only Patient Tobacco Use Status: Current someday Tobacco user Cigarettes Per Day: 4 Smoked in Last 30 Days: Yes Use of substances other than those prescribed or required for medical reasons: No Advance Directives: No Advance Directives Information Provided: Yes service: No Current occupational status: employed Physical Exam ED Vital Signs: Vital Signs - 24 hr 02/24/23 06:46 02/24/23 07:12 02/24/23 08:42 Temperature 99 F 98.6 F 99.0 F Pulse Rate 111 H 79 97 Respiratory Rate 19 18 16 Blood Pressure 112/71 104/71 94/55 L Pulse Oximetry 97 98 97 Oxygen Delivery Method Room Air Room Air Room Air BMI result Body Mass Index 21.6 Const General: cooperative, no acute distress, alert and awake Nutritional Appearance: well nourished Orientation/consciousness: patient oriented x3 Limitations: no limitations HENMT Head: Yes normal to inspection and Yes atraumatic Ears: hearing grossly normal bilaterally and external ears normal General nose exam: Normal external nose present, no nasal discharge noted and no epistaxis Face and sinus: Yes normal facial exam, No abrasion and No laceration Mouth: Normal oral and palatal mucosa present, no drooling and no muffled voice Eyes General: appearance normal, both eyes and all related structures Periorbital: periorbital findings normal Eyelids: Yes eyelids normal Conjunctivae: conjunctivae normal Pupils: Equal, round and reactive pupils present EOM: EOMs intact bilaterally Neck Neck: Yes normal visual inspection, Yes full ROM and Yes no lymphadenopathy Chest Chest palpation & inspection: normal inspection of the chest Resp Effort & Inspection: normal respiratory effort and able to speak in complete sentences Auscultation: clear to auscultation bilaterally Cardio Rate: regular rate Rhythm: regular rhythm GI Inspection: Yes normal to inspection Palpation (GI): Soft to palpation, not firm, nontender and no guarding General: Yes no CVA tenderness Back/Spine/Pelvis Back: no CVA tenderness Neuro General: patient oriented x3 and moves all extremities Cranial nerves: Yes Equal, round and reactive pupils present Cognition (Neuro): normal cognition Motor exam (neuro): 5/5 motor strength present throughout Sensory Exam: Normal double simultaneous stimulation for sensation Coordination: [id number] test normal Extrem General: Yes normal to inspection, Yes full ROM and Yes capillary refill normal Psych Appearance: grossly normal Mental Status: mental status grossly normal Affect: normal affect Attitude: cooperative Thought process: Normal thought process present Thought content: Normal thought content present Insight: Good insight present (Psych) Medications Administered Discontinued Medications Generic Name Dose Route Start Last Admin Trade Name Freq PRN Reason Stop Dose Admin Sodium Chloride 1,000 mls @ 999 mls/hr 02/24/23 07:00 02/24/23 08:40 Ns IV 02/24/23 08:00 Infused .Q1H1M [facility] Infusion Ketorolac Tromethamine 15 mg 02/24/23 06:46 02/24/23 07:30 Ketorolac Tromethamine 15 Mg/Ml Vial IVPUSH 02/24/23 06:47 15 mg ONCE ONE Administration Medical Decision Making Medical Decision Making [facility] Narrative: Patient is a 32 year old assigned male at with no reported medical history presenting to the emergency department today with bilateral flank pain. Patient's physical exam was unremarkable. Patient's blood work was unremarkable. Patient's urine showed an acute UTI. Patient's abdomen/pelvis CT showed constipation. I explained my physical exam findings as well as all test results to the patient. I answered all questions asked by the patient. I stressed the importance of the patient taking his medication as prescribed. I stressed the importance of the patient following up with his primary care provider. I stress ed the importance of the patient returning to the emergency department immediately if his symptoms were to worsen or if he were to develop any dizziness, shortness of breath, difficulty breathing, chest pain, blurry vision, loss of vision, nausea, vomiting, abdominal pain, fever, chills, back pain, or any other complaints. Patient verbalized agreement and understanding with this treatment plan and discharge. Differential Diagnosis Differential Diagnoses: The differential diagnosis associated with the presentation includes kidney stone, flank pain, constipation, UTI Admission/Observation Consideration of admission/observation: Escalation of care including adm ission/observation considered Patient would have been admitted to the hospital had his work up had any findings where hospital admission was appropriate. Lab Data MDM Lab Attestation statement: I reviewed the patient's lab results. My interpretation of these studies and their corresponding values is that they are grossly normal. 02/24/23 07:09 02/24/23 07:09 Labs: Lab Results 02/24/23 02/24/23 02/24/23 Range/Units 07:09 07:09 08:05 WBC 11.6 H (4.8-10.8) X10*3/uL RBC 4.72 (4.60-5.80) X10*6/uL Hgb 12.7 L (14.0-18.0) g/dl Hct 38.8 L (42.0-52.0) % MCV 82.2 (80.0-98.0) fL MCH 26.9 L (27.0-33.0) pg MCHC 32.7 (31.0-36.0) g/dl RDW 13.0 (11.0-16.0) % Plt Count 249 (160-400) X10*3/uL MPV 9.5 (9.4-12.4) fL Immature Gran % (Auto) 0.3 (0.0-0.4) % Neut % (Auto) 69.7 (45-73) % Lymph % (Auto) 15.5 L (20-40) % [place] % (Auto) 13.7 H (2-11) % Eos % (Auto) 0.3 (0-4) % Baso % (Auto) 0.5 (0-2) % Lymph # (Auto) 1.8 (1.2-4.9) X10*3/uL [place] # (Auto) 1.6 H (0.1-1.2) X10*3/uL Eos # (Auto) 0.0 (0.0-0.4) X10*3/uL Baso # (Auto) 0.1 (0.0-0.2) X10*3/uL Abs Immat Gran (auto) 0.04 H (0.00-0.03) X10*3/uL Absolute Neuts (auto) 8.1 (2.0-8.3) x10*3/uL Absolute Nucleated RBC 0.000 (0.0-0.012) X10*3/uL Nucleated RBC % (auto) 0.0 (0.0-0.2) /100WBC Smear Tech's Comments VERIFIED Sodium 137 (135-145) mmol/L Potassium 3.7 (3.3-5.1) mmol/L Chloride 104 (96-108) mmol/L Carbon Dioxide 26 (22-29) mmol/L Anion Gap 11 L (12-20) BUN 15 (9-16) mg/dL Creatinine 0.86 (0.5-1.4) mg/dL Estim Creat Clear Calc 97.5 Estimated GFR > 60 Random Glucose 109 (60-115) mg/dL Calcium 8.5 D (8.4-10.2) mg/dL Magnesium 2.1 (1.6-2.6) mg/dL Total Bilirubin 0.9 (0.0-1.0) mg/dL AST 21 (5-37) U/L ALT 32 (0-40) U/L Alkaline Phosphatase 57 (39-117) U/L Total Protein 6.7 (6.5-8.0) g/dL Albumin 3.9 (3.5-5.0) g/dL Urine Color Dark Yellow Urine Appearance Cloudy Urine pH 6.5 (5.0-9.0) Ur Specific [place] 1.020 (1.005-1.025) Urine Protein 100 (2+) H (Neg-Trace) mg/dL Urine Glucose (UA) Negative (Negative) mg/dL Urine Ketones Trace (Negative) mg/dL Urine Blood Moderate (2+) H (Negative) Urine Nitrite Positive H (Negative) Ur Leukocyte Esterase Large (3+) H (Negative) Urine RBC >20 H (0-2) /HPF Urine WBC >50 H (0-5) /HPF Ur Squamous Epith Cells 0-2 (0-2) /HPF Urine Bacteria 4+ (None Seen) Hyaline Casts 3-5 (0-2) /LPF Independent Interpretation I performed an independent interpretation of an: CT Scan Interpretation: My interpretation is in agreement with the radiologist's impression of this imaging study. --- EXAMINATION: CT ABDOMEN AND PELVIS WITHOUT CONTRAST? CLINICAL INFORMATION: Bilateral flank pain and hematuria? COMPARISON: None available. TECHNIQUE: Multidetector volumetric imaging was performed from the superior aspect of the liver through the pubic symphysis. Sagittal and coronal reformatted images were obtained on the technologist's workstation.? This CT examination was performed using dose optimization techniques as appropriate, variously including the following: *Automated exposure control *Adjustment of mA and/or kV according to patient size (this includes techniques or standardized protocols for targeted exams where dose is matched to indication/reason for exam; i.e. extremities or head) *Use of iterative reconstruction technique DLP: 291 mGy-cm FINDINGS: LUNG BASES: The visualized lung bases are unremarkable.? LIVER, GALLBLADDER, AND BILIARY TREE: The liver is normal in size, shape, and attenuation. No focal hepatic lesion or biliary ductal dilatation is present. The gallbladder is unremarkable with no evidence of radiopaque gallstones, gallbladder wall thickening, or obvious pericholecystic inflammatory changes.? PANCREAS: Unremarkable.? SPLEEN: Unremarkable.? ADRENAL GLANDS: Unremarkable.? KIDNEYS AND URETERS: The kidneys are normal in size, shape, and attenuation. No hydronephrosis, hydroureter, or calculi seen. No perinephric stranding. ? BLADDER: Unremarkable.? GASTROINTESTINAL TRACT: There is large amount of stool and gas seen in colon without significant distention. The small bowel loops are normal caliber. Appendix is not visualized.? ABDOMINAL WALL: No significant hernia is appreciated.? LYMPH NODES: Normal. VASCULAR: Unremarkable. PELVIC VISCERA: Unremarkable.? OSSEOUS STRUCTURES: No aggressive lytic or sclerotic process seen.? CT/CT abdomen pelvis wo IV con IMPRESSION: 1.? No acute intra-abdominal process seen. 2.? Mild constipation. ? Fleischner guidelines were followed. Dictated By: Brice Dickens MD Signed By: Electronically signed by Brice Dickens MD 02/24/23 0756 Independent Historian Clinical information obtained from an independent historian. History obtained from or confirmed by: EMS (EMS provided additional history and confirmed the history the patient provided) Discharge Plan Discharge Clinical Impression: Acute constipation, Urinary tract infection Patient Disposition: Home, Self-Care Instructions: Constipation (DC), Urinary Tract Infection in Men (DC) Additional Instructions: Follow up with your primary care provider. Return to the emergency department immediately if your symptoms worsen or if you develop any dizziness, shortness of breath, difficulty breathing, chest pain, blurry vision, loss of vision, nausea, vomiting, abdominal pain, fever, chills, back pain, or any other complaints. Prescriptions: New magnesium citrate Solution 150 ml PO DAILY Qty: 296 0RF cefuroxime axetil 250 mg tablet 250 mg PO BID 7 Days Qty: 14 0RF Referrals: Kathleen Molina NP [Primary Care Provider] - Stand Alone Forms: Work/School Release Interventions: ED Discharge Assessment Last Done: 02/24/23 08:48 Discharge Date/Time: 02/24/23 08:52 Print Language: Polish
[2023-02-24 06:46] VITALS: BP 110/70; BP 112/71; PULSE 111; PULSE 122; RESP 19; TEMP 37.2; O2SAT 97; O2SAT 99; BMI 21.6
[2023-02-24 07:12] VITALS: BP 104/71; PULSE 79; RESP 18; TEMP 37; O2SAT 98
[2023-02-24 07:15] LABS: Basophils Absolute Auto 0.1 X10*3/uL (0.0-0.2); Basophils Percent Auto 0.5 % (0-2); Eosinophils Percent Auto 0.3 % (0-4); Hematocrit 38.8 % (42.0-52.0); Hemoglobin 12.7 g/dl (14.0-18.0); Imm Gran Abs Auto 0.04 X10*3/uL (0.00-0.03); Imm Gran Pct Auto 0.3 % (0.0-0.4); Lymphocytes Absolute Auto 1.8 X10*3/uL (1.2-4.9); Lymphocytes Percent Auto 15.5 % (20-40); MANUAL DIFF FLAG SCAN; Mean Corpuscular HGB Conc 32.7 g/dl (31.0-36.0); Mean Corpuscular Hemoglobin 26.9 pg (27.0-33.0); Mean Corpuscular Volume 82.2 fL (80.0-98.0); Mean Platelet Volume 9.5 fL (9.4-12.4); Monocytes Absolute Auto 1.6 X10*3/uL (0.1-1.2); Monocytes Percent Auto 13.7 % (2-11); Neutrophils Absolute Auto 8.1 x10*3/uL (2.0-8.3); Neutrophils Percent Auto 69.7 % (45-73); Platelet Count 249 X10*3/uL (160-400); Red Blood Count 4.72 X10*6/uL (4.60-5.80); SCAN SMEAR FLAG 1; White Blood Count 11.6 X10*3/uL (4.8-10.8)
--- NOTE | 2023-02-24 07:16 | PC.NURSE ---
Alert and oriented, states that a few days ago he started to have abdominal pain that has worsened. States pain with urination and noted urine was blood tinged. Denies chest pain or sob, no headache. States usually drinks alot of soda but has not drank any soda x 1 week. VSS.
[2023-02-24 07:29] LABS: Alanine Aminotransferase 32 U/L (0-40); Albumin Level 3.9 g/dL (3.5-5.0); Alkaline Phosphatase 57 U/L (39-117); Anion Gap 11 (12-20); Aspartate Amino Transferase 21 U/L (5-37); Bilirubin Total 0.9 mg/dL (0.0-1.0); Blood Urea Nitrogen 15 mg/dL (9-16); Calcium 8.5 mg/dL (8.4-10.2); Carbon Dioxide 26 mmol/L (22-29); Chloride 104 mmol/L (96-108); Creatinine Clr Calc Pharmacy 97.5; Estimated Glomerular Filt Rate > 60; Glucose Random 109 mg/dL (60-115); Magnesium 2.1 mg/dL (1.6-2.6); Potassium 3.7 mmol/L (3.3-5.1); Sodium 137 mmol/L (135-145); Total Protein 6.7 g/dL (6.5-8.0)
[2023-02-24] MEDS: Ketorolac Tromethamine 15 MG/ML VIAL IVPUSH (07:30)
[2023-02-24] MEDS: 0.9 % Sodium Chloride 1,000 ML 999 ML IV (07:31)
[2023-02-24 07:36] LABS: SLIDE REVIEW VERIFIED
[2023-02-24 08:20] LABS: Appearance Urine Cloudy; Color Urine Dark Yellow; Glucose Urine UA Negative (Negative); Leukocyte Esterase Urine Large (3+) (Negative); Nitrite Urine Positive (Negative); PH 6.5 (5.0-9.0); UMIC TRIGGER UACC YES; Urine Blood Moderate (2+) (Negative); Urine Ketones Trace mg/dL (Negative); Urine Protein 100 (2+) mg/dL (Neg-Trace)
[2023-02-24 08:22] LABS: Bacteria Urine 4+ (None Seen); RBC Urine >20 /HPF (0-2); Squamous Epithelial Cell Urine 0-2 /HPF (0-2); UACC Culture Trigger YES; WBC Urine >50 /HPF (0-5)
[2023-02-24 08:42] VITALS: BP 94/55; PULSE 97; RESP 16; TEMP 37.2; O2SAT 97
--- NOTE | 2023-02-24 08:49 | PC.NURSE ---
Alert and oriented. Reports iv pain meds and fluids improved how he was feeling. Reviewed discahrge plan for uti and constipation. Medications changed to [facility] per patients request.
== END 2023-02-24 08:52 | disposition home or self-care (01) ==
PROVIDERS: Physician Assistant Medical; Emergency Provider Internal Medicine; PCP Hospitalist
DX: N39.0 Urinary tract infection, site not specified (principal); K59.00 Constipation, unspecified; M54.50 Low back pain, unspecified; R31.9 Hematuria, unspecified; Z79.899 Other long term (current) drug therapy
CPT/HCPCS: 36415; 74176; 80053; 81001; 83735; 85025; 87086; 87088; 87186; 96361; 96374; 99284; J1885